=== PATIENT | female | born 2000 | race Two or more races ===

== ENCOUNTER 2023-01-30 14:12 | Outpatient (CLI) | payer OTHER | END 2023-01-30 15:21 | disposition home or self-care (01) | LOC: PRENATAL 14:12 | PROVIDERS: ATTEND Obstetrics & Gynecology Maternal & Fetal Medicine | DX: O35.9XX0 Maternal care for (suspected) fetal abnormality and damage, unspecified, not applicable or unspecified (principal); O35.3XX0 Maternal care for (suspected) damage to fetus from viral disease in mother, not applicable or unspecified; O45.90 Premature separation of placenta, unspecified, unspecified trimester; Z3A.21 21 weeks gestation of pregnancy ==

== ENCOUNTER 2023-04-17 09:32 | Outpatient (CLI) | payer OTHER | END 2023-04-17 11:05 | disposition home or self-care (01) | LOC: PRENATAL 09:32 | PROVIDERS: ATTEND Obstetrics & Gynecology Maternal & Fetal Medicine | DX: O26.849 Uterine size-date discrepancy, unspecified trimester (principal); O35.9XX0 Maternal care for (suspected) fetal abnormality and damage, unspecified, not applicable or unspecified; O36.8199 Decreased fetal movements, unspecified trimester, other fetus; O43.90 Unspecified placental disorder, unspecified trimester; Z3A.32 32 weeks gestation of pregnancy ==

== ENCOUNTER 2025-06-28 11:50 | Emergency (ER) | payer OTHER ==
[~2025-06-28] VITALS: Ht 165.1 cm; Wt 88.9 kg
[2025-06-28] MEDS ORDERED: FOLIC ACID20 MG PO (12:19)
[2025-06-28] MEDS ORDERED: KETOROLAC TROMETHAMINE 30 MG VIAL IV ONE (12:45)
[2025-06-28] MEDS ORDERED: KETOROLAC TROMETHAMINE 30 MG VIAL ONE (12:47)
[2025-06-28 13:07] LABS: BASO % 0.2 % (0.1-1.2); EOS # 0.14 (0.04-0.54); EOS % 1.1 % (0.7-7.0); LYMPH # 1.91 (1.18-3.74); LYMPH % 15.3 % (19.3-53.1); MEAN PLATELET VOLUME 11.20 fl (9.4-12.4); MONO # 0.60 (0.24-0.82); MONO % 4.8 % (4.7-12.5); NEUT # 9.79 (1.56-6.13); NEUT % 78.4 % (34.0-71.1); RED CELL DISTRIBUTION WIDTH 13.2 % (11.6-14.4)
[2025-06-28] MEDS ORDERED: MISOPROSTOL 100 MCG TABLET ONE (14:24)
[2025-06-28] MEDS ORDERED: MISOPROSTOL 100 MCG TABLET PO ONE (14:30)
== END 2025-06-28 14:45 | disposition home or self-care (01) ==
LOC: ER 11:50
PROVIDERS: Emergency Medicine
DX: O03.9 Complete or unspecified spontaneous abortion without complication (principal); R10.2 Pelvic and perineal pain; Z88.0 Allergy status to penicillin